=== PATIENT | female | born 1955 | race Caucasian/White ===

== ENCOUNTER 2016-05-19 13:20 | Inpatient (IN) | payer MEDICAID ==
[2016-05-19 13:48] LABS: Hematocrit 36.6 % (37.0-47.0); Hemoglobin 11.9 gm/dL (12.5-16.0); Mean Cell Volume 85.5 fl (78-100); Mean Corpuscular Hemoglobin 27.8 pg (27-31); Mean Corpuscular Hgb Conc 32.5 g/dl (32-36); Mean Platelet Volume 8.1 fl (6.0-9.5); Neutrophil # 4.8 K/mm3 (1.3-6.0); Neutrophil % 72.4 % (42-75.0); Platelet Count 223 K/mm3 (150-450); Red Blood Count 4.28 M/mm3 (4.2-5.4); Red Cell Distribution Width 15.6 % (11.5-14.0); White Blood Count 6.6 K/mm3 (4.0-10.5)
[2016-05-19 14:16] LABS: Troponin I 0.03 ng/ml (0.00-0.10)
[2016-05-19 14:19] LABS: Albumin * 3.3 gm/dl (3.4-5.0); Anion Gap 13.9 mmol/L (6.8-13.8); Bilirubin, Total 0.4 mg/dL (0.0-1.1); Ca. Corrected For Albumin 8.7 mg/dL (8.4-10.2); Calcium * 8.5 mg/dL (7.9-10.9); Carbon Dioxide 28.1 mmol/L (24-32.6); Total Protein 6.9 gm/dL (6.2-8.2)
--- OUTSIDE RECORDS SUMMARY | 2016-05-19 14:27 | XMS REPORT | Continuity of Care Document ---
:1955 Author Organization [facility] ([facility]) Address [place] [address] Phone [phone] Care Team Providers Name Role Phone Provider, No-Primary Care Primary Care Provider Unavailable Source Comments This disclosure is being made pursuant to the Care Everywhere program, applicable federal and state laws, and may not contain all informaitonavailable regarding this patient.[facility] ([facility]) Active Allergies and Adverse Reactions No Known Allergies Current Medications Prescription Sig. Disp. Refills Start Date End Date Status meloxicam 15 mg tablet Take 15 mg by Active mouth 2 times daily. HYDROcodone-acetaminophen Take 1 Tab by Active 5-325 mg per tablet mouth every 4 hours as needed. Active Problems Problem Noted Date Altered mental status 12/24/2013 Social History Tobacco Use Types Packs/Day Years Used Date Current Every Day Smoker Cigarettes 1 Alcohol Use Drinks/Week oz/Week Comments Yes Last Filed Vital Signs Vital Sign Reading Time Taken Blood Pressure 145/82 12/24/2013 8:01 AM CDT Pulse 86 12/24/2013 8:01 AM CDT Temperature 36.2 C (97.2 F) 12/24/2013 8:01 AM CDT Respiratory Rate 16 12/24/2013 8:01 AM CDT Height - - Weight - - Body Mass Index - - Oxygen Saturation 97% 12/24/2013 8:01 AM CDT Plan of Care Health Maintenance Due Date Last Done Comments HCV Screening 1955 Hepatitis B Vaccine (1 of 3 - Primary Series) 1955 Tdap Vaccine 1968 DIABETIC: Cholesterol 10/30/1975 Diabetic: Hdl 10/30/1975 DIABETIC: Hemoglobin A1C 10/30/1975 Diabetic: Ldl 10/30/1975 DIABETIC: Microalbumin 10/30/1975 DIABETIC: Triglycerides 10/30/1975 MMR Vaccine 10/30/1975 Td Vaccine 10/30/1975 Pneumococcal Vaccine (1 of 1 - PPSV23) 1976 Cervical Cancer Screening 10/30/1987 Mammogram 1997 Colonoscopy 2007 DIABETIC: Foot Exam 01/01/2014 DIABETIC: Retinal Eye Exam 01/01/2014 Influenza Vaccine: Seasonal (#1) 10/14/2015 Results from Last 3 Months Not on file
--- NOTE | 2016-05-19 14:40 | ERNOTE ---
Dyspnea - General Presenting Symptoms: shortness of breath, difficulty of breathing Time Seen by Provider: 05/19/16 13:36 Source: patient Exam Limitations: no limitations - Immun/Allergies/Home Medications Immunizations: IMMUNIZATION HX Immunizations Up to Date Yes History of Influenza Vaccine No Hx Pneumococcal Vaccination No Allergies/Adverse Reactions: Allergies No Known Allergies Allergy (Verified 05/19/16 13:28) Home Medications: HOME MEDICATIONS NK [No Home Medication] 05/19/16 [Last Taken Unknown] - History of Present Illness Severity: severe Frequency of episodes: Reports: no prior episodes Review of Systems - Review of Systems Constitutional: Present: See HPI EYE: Present: no symptoms reported ENT: Present: no symptoms reported Respiratory: Present: shortness of breath Cardiology: Present: palpitations Gastrointestinal/Abdominal: Present: no symptoms reported Genitourinary: Present: no symptoms reported Musculoskeletal: Present: no symptoms reported Skin: Present: no symptoms reported Neurological: Present: no symptoms reported Endocrine: Present: no symptoms reported Hematologic/Lymphatic: Present: no symptoms reported Psych: Present: no symptoms reported - Patient's Past Medical History Patient History - Medical: No pertinent hx Patient History - Cardiac/Respiratory: No pertinent hx Patient History - Cancer: No Hx of Cancer Patient History - Surgical Procedures: Back Surgery Patient History - Other: None - Social History Living Situations: home Abuse History: No History of abuse Psych History: No pertinent hx Smoking Status: Current every day smoker Have you smoked in the past 12 months: Yes Alcohol Use: none Drug Use: none - Immunizations Immunizations Up to Date: Yes Hx Pneumococcal Vaccination: No History of Influenza Vaccine: No Physical Exam - Physical Exam General Appearance: Present: wd/wn, alert, severe distress Eye Exam: Normal inspection: bilateral, PERRL: bilateral Ears, Nose, Throat: Present: normal ENT inspection, H, normal pharynx Neck: Present: normal inspection, nontender Respiratory: Present: normal breath sounds, chest nontender, respiratory distress, accessory muscle use, crackles - right base, other - tachypneic Cardiovascular/Chest: Present: no murmur, normal peripheral pulses, tachycardia Gastrointestinal/Abdominal: Present: normal bowel sounds, nontender, nondistended, soft, no organomegaly Rectal Exam: Present: deferred Back Exam: Present: normal inspection, normal range of motion Extremity Exam: Present: normal inspection, non-tender, no edema, normal range of motion Neurological Exam: Present: alert, oriented, normal mood/affect Skin Exam: Present: normal color, warm/dry Lymphatic Exam: Present: no adenopathy ED Progress - Results and Orders Patient's Lab Results:: I have reviewed the patient's lab results. - Vital Signs Patient's Vital Signs:: I have reviewed the patient's vital signs. Vital Signs: Vital Signs 05/19/16 05/19/16 13:24 13:56 Temperature 36.4 C L Pulse Rate 103 H 98 Respiratory 24 H Rate Blood Pressure 146/94 O2 Sat by Pulse 95 Oximetry - EKG EKG read: Interp. by me - X-Ray X-Ray #1 X-Ray: chest Interpretation: Reviewed by me - CT/Ultrasound CT/Ultrasound Narrative: Because Joselyn met the PERC criteria as well as having elevated BNP and d-dimer and a troponin leak a chest CT was done. However it did not reveal any evidence of any pulmonary embolus, it did reveal fairly extensive congestive heart failure and cardiomegaly. - Progress/Reassessment Chief Complaint: Dyspnea Plan - Plan Plan: Patient does not have any significant medical history neither she seen a medical physician in quite some time. Patient presented with uncontrolled hypertension the top blood pressure 160/110 as well as being tachypneic and hypoxic. On CT patient does not have a PE however she does have fairly extensive cardiomegaly and congestive heart failure. Patient need to admitted to a monitored bed, 80 Lasix 4 morphine and 4 Zofran are given here in the emergency department. Departure Clinical Impression: Uncontrolled hypertension CHF (congestive heart failure) Qualifiers: Congestive heart failure type: unspecified congestive heart failure type Congestive heart failure chronicity: acute Qualified Code(s): I50.9 - Heart failure, unspecified - Departure Disposition: [facility] Condition: Fair
[2016-05-19] MEDS ORDERED: MORPHINE SULFATE 4 MG/ML SYRG IV ONE (15:26)
[2016-05-19] MEDS ORDERED: FUROSEMIDE 10 MG/ML VIAL IV ONE (15:26)
[2016-05-19] MEDS ORDERED: ONDANSETRON HCL/PF 2 MG/ML VIAL IV ONE (15:26)
[2016-05-19] MEDS ORDERED: MORPHINE SULFATE 4 MG/ML SYRG ONE (15:34)
[2016-05-19] MEDS ORDERED: ONDANSETRON HCL/PF 2 MG/ML VIAL ONE (15:34)
[2016-05-19] MEDS ORDERED: FUROSEMIDE 10 MG/ML VIAL ONE (15:34)
--- OUTSIDE RECORDS SUMMARY | 2016-05-19 16:27 | XMS REPORT | Continuity of Care Document ---
:1955 Author Organization [facility] ([facility]) Address [place] [address] Phone [phone] Care Team Providers Name Role Phone Provider, No-Primary Care Primary Care Provider Unavailable Source Comments This disclosure is being made pursuant to the Care Everywhere program, applicable federal and state laws, and may not contain all informaitonavailable regarding this patient.[facility] ([facility]) Active Allergies and Adverse Reactions No [...]
[2016-05-19] MEDS ORDERED: FLU VACC QS2016-17 36MOS UP/PF 60 MCG/0.5 ML DISP.SYRIN IM ONE (17:07)
--- NOTE | 2016-05-19 21:46 | HP ---
Chief Complaint - Chief Complaint Date of Service: 05/19/16 Time of Service: 21:36 Chief Complaint: "SOB". Source of HPI- History of Present Illness: Ms. Hickey is a 60-yr-old WF pt with no prior pertinent medical history and has no PCP. Pt is not quite a precise historian. She states that she has felt SOB for the last 2 weeks, but it 'seemed like it was getting worse within the last few days.' She reports that the SOB was more worse with any activity and has been feeling fatigued. She denies the associated symptoms of coughing, chest pain or wheezing. She also denies fevers and chills. She admits to rarely seeking medical care or seeing a doctor. During evaluation at the ED, the hematology and Chemistries labwork were unremarkable. The CT was negative for Pulmonary embolism. The EKG & Troponin also was negative for ACS. However, the CXR showed increased pulmonary congestion, suggestive of CHF & also bilateral pleural effusion was noted. Her BNP was elevated at 5533. She will be admitted inpatient for a minimum of 2 midnights or more due to clinical signs of new onset CHF which has the potential to cause cardiac arrhythmias. She also had bilateral pleural effusion and, both of the stated conditions will require/ respond well to IV diuretics. - Patient's Past Medical History Patient History - Medical: No pertinent hx Patient History - Cardiac/Respiratory: CHF Patient History - Cancer: No Hx of Cancer Patient History - Surgical Procedures: Back Surgery Patient History - Other: None - Family History Father Family History - Medical: Family History - Cardiac/Respiratory: CHF, Hypertension, Hyperlipidemia Family History - Cancer: No pertinent family hx Mother Family History - Medical: , Diabetes Type 2 Family History - Cardiac/Respiratory: Hypertension Family History - Cancer: No pertinent family hx - Social History Living Situations: spouse Abuse History: No History of abuse Psych History: No pertinent hx Smoking Status: Current some day smoker Have you smoked in the past 12 months: Yes Do you dip or chew tobacco: No Alcohol Use: none Drug Use: none - Immunizations Immunizations Up to Date: Yes Hx Pneumococcal Vaccination: No History of Influenza Vaccine: No Review Of Systems (GEN) - Review of Systems Generalized/Overall Review: Present: Weakness. Absent: Chills, Fever, Diaphoresis EENTM: Absent: Eye Pain, Blurred Vision, Nose Congestion, Throat Pain Respiratory: Present: Shortness of Breath. Absent: Cough, Orthopnea, Wheezing Cardiac: Absent: Chest Pain, Palpitations Abdominal: Absent: Nausea, Vomiting, Abdominal Pain, Constipation, Diarrhea Genitourinary: Absent: Burning, Frequency, Hematuria Musculoskeletal: Absent: Joint Pain, Back Pain, Joint Swelling Neurological: Absent: Headache, Anxiety, Depressed Skin: Absent: Dryness, Lesions Endocrine: Absent: Intolerance to Cold, Intolerance to Heat, Increased Thirst Misc: All systems neg except as marked Allergies/Adverse Reactions: Allergies Allergy/AdvReac Type Severity Reaction Status Date / Time No Known Allergies Allergy Verified 05/19/16 17:27 Home Medications: HOME MEDICATIONS NK [No Home Medication] 05/19/16 [Last Taken Unknown] Exam - Exam Vital Signs: Vital Signs - Last Taken Temp 36.4 C L 05/19/16 16:59 Pulse 98 05/19/16 16:59 Resp 16 05/19/16 16:59 BP 132/85 05/19/16 16:59 Pulse Ox 92 05/19/16 16:59 Constitutional: Present: Alert, Oriented x3, No distress ENT Exam: Present: normal ENT inspection, hearing grossly normal, dry mucous membranes. Absent: nasal congestion, nasal drainage Eye Exam: bilateral eye: normal inspection, PERRL Neck: Present: full range of motion, supple, normal inspection Back Exam: Present: normal inspection, no CVA tenderness Respiratory: Present: no accessory muscle use, rales - Bilateral bases., rhonchi Cardiovascular/Chest: Present: regular rate, rhythm, no chest tenderness, no edema, no murmur Abdomen: Present: Normal bowel sounds, soft, nontender /Rectal: Present: Exam deferred Extremity: Present: normal range of motion, non-tender, normal inspection Skin Exam: Present: warm/dry, no cyanosis Lymphatic: Present: no adenopathy Neurologic: Present: no motor/sensory deficits, alert, oriented x 3 Appearance: Present: appropriate appearance, appropriate insight Eye contact: Present: cooperative, good eye contact, normal speech Thoughts: Present: normal thought pattern, no apparent hallucination Diagnostic Studies: Laboratory Results WBC 6.6 K/mm3 (4.0-10.5) 05/19/16 13:40 RBC 4.28 M/mm3 (4.2-5.4) 05/19/16 13:40 Hgb 11.9 gm/dL (12.5-16.0) L 05/19/16 13:40 Hct 36.6 % (37.0-47.0) L 05/19/16 13:40 MCV 85.5 fl (78-100) 05/19/16 13:40 MCH 27.8 pg (27-31) 05/19/16 13:40 MCHC 32.5 g/dl (32-36) 05/19/16 13:40 RDW 15.6 % (11.5-14.0) H 05/19/16 13:40 Plt Count 223 K/mm3 (150-450) 05/19/16 13:40 MPV 8.1 fl (6.0-9.5) 05/19/16 13:40 Immature Gran % (Auto) 0.20 % (0.001-0.429) 05/19/16 13:40 Immature Gran # (Auto) 0.01 K/mm3 (0.000-0.0310) 05/19/16 13:40 Neutrophils % 72.4 % (42-75.0) 05/19/16 13:40 Lymphocytes % 18.8 % (20-51) L 05/19/16 13:40 Monocytes % 6.5 % (0.0-9) 05/19/16 13:40 Eosinophils % 1.8 % (0.0-3.0) 05/19/16 13:40 Basophils % 0.3 % (0.0-1.0) 05/19/16 13:40 Nucleated RBC % 0.0 k/mm3 (0-1) 05/19/16 13:40 Neutrophils # 4.8 K/mm3 (1.3-6.0) 05/19/16 13:40 Lymphocytes # 1.2 k/mm3 (1.5-3.5) L 05/19/16 13:40 Monocytes # 0.4 k/mm3 (0.0-1.0) 05/19/16 13:40 Eosinophils # 0.1 k/mm3 (0.0-0.7) 05/19/16 13:40 Absolute Basophils 0.0 k/mm3 (0.0-0.1) 05/19/16 13:40 D-Dimer 1.96 mg/L (0.19-0.49) H 05/19/16 14:00 pCO2 40.4 mmHg (32.0-45.0) 05/19/16 14:19 pO2 95.0 mmHg (83.0-108.0) 05/19/16 14:19 HCO3 26.3 mmol/L (21.0-28.0) 05/19/16 14:19 Total CO2 27.6 mmol/L (19.0-24.0) H 05/19/16 14:19 Base Excess 1.9 mmol/L (-2.0-3.0) 05/19/16 14:19 ABG pH 7.43 (7.35-7.45) 05/19/16 14:19 ABG O2 Sat (Measured) 97.4 % (94.0-98.0) 05/19/16 14:19 Sodium 142 mmol/L (132-142) 05/19/16 13:40 Plasma Sodium 143 mmol/L (130-142) H 05/19/16 13:40 Potassium 4.0 mmol/L (3.4-4.6) 05/19/16 13:40 Chloride 104 mmol/L (97-106) 05/19/16 13:40 Carbon Dioxide 28.1 mmol/L (24-32.6) 05/19/16 13:40 Anion Gap 13.9 mmol/L (6.8-13.8) H 05/19/16 13:40 BUN 14 mg/dL (3-23) 05/19/16 13:40 Creatinine 0.70 mg/dL (0.4-1.4) 05/19/16 13:40 Est GFR (Non-Af Amer) 91 mL/min (60-130) D 05/19/16 13:40 BUN/Creatinine Ratio 20.0 (9.0-21.6) 05/19/16 13:40 Random Glucose 139 mg/dL (70-110) H 05/19/16 13:40 Calcium 8.5 mg/dL (7.9-10.9) 05/19/16 13:40 Calcium Adj for Albumin 8.7 mg/dL (8.4-10.2) 05/19/16 13:40 Total Bilirubin 0.4 mg/dL (0.0-1.1) 05/19/16 13:40 AST 32 U/L (0-48) 05/19/16 13:40 ALT 58 U/L (19-67) 05/19/16 13:40 Alkaline Phosphatase 79 U/L (50-170) 05/19/16 13:40 Troponin I 0.030 ng/ml (0.00-0.10) 05/19/16 13:40 B-Natriuretic Peptide 5533 pg/mL (5-205) H 05/19/16 13:40 Total Protein 6.9 gm/dL (6.2-8.2) 05/19/16 13:40 Albumin 3.3 gm/dl (3.4-5.0) L 05/19/16 13:40 Assessment/Plan - Assessment/Plan (1) New onset of congestive heart failure Assessment: Ms Hickey is a 60-yr-old who presented with 2 weeks of SOB and she reported that it was progressively becoming worse. Heart failure is suspected due to Dyspnea, fatigue, the CXR findings showing increased pulmonary congestion/ increased interstitial markings & Elevated BNP. She will need an Echocardiogram to evaluate left and Right ventricular systolic function & valve function. Will administer IV diuretics, O2 supplementation, Provide CHF teaching, Accurate I/O, Na restricted diet and daily Wts, Give K replacement, VTE prophylaxis. Will add TSH, Fasting Lipid Profile, and BMP in am. Problem: Acute (2) Bilateral pleural effusion Assessment: The CXR showed bilateral pleural effusion and was most likely brought forth by Heart Failure. However, the CT of the chest showed an incidental findings of Andrea. upper pulmonary lung nodules with the largest nodule measuring about 6.9 mm. Therefore, this make malignancy a questionable cause of Pleural effusion. Consider thoracentesis with ultrasound guidance and pleural fluid testing to determine etiology. Problem: Acute (3) HTN (hypertension) Assessment: Will monitor for sustained high BP. (SBP> 140 DBP> 90.) Problem: Acute Qualifiers: Hypertension type: essential hypertension Qualified Code(s): I10 - Essential (primary) hypertension
[2016-05-19] MEDS: IBUPROFEN 400 MG TABLET PO PRN (22:24)
[2016-05-19] MEDS: POTASSIUM CHLORIDE 20 MEQ TABLET.SA PO SCH (22:24)
[2016-05-20] MEDS: HEPARIN SODIUM,PORCINE 5,000 UNITS/ML VIAL SC SCH ×2 (02:21→11:42)
[2016-05-20 06:45] LABS: Anion Gap 11.8 mmol/L (6.8-13.8); Calcium * 8.7 mg/dL (7.9-10.9); Carbon Dioxide 32.7 mmol/L (24-32.6); Chol/HDL Risk Ratio 2.9 mg/dL (3.3-4.4); Estimated Creat Clear 47.4; Potassium 4.5 mmol/L (3.4-4.6); TSH * 2.808 uIU/mL (0.358-3.74)
[2016-05-20] MEDS: POTASSIUM CHLORIDE 20 MEQ TABLET.SA PO SCH (08:10)
[2016-05-20] MEDS: FUROSEMIDE 10 MG/ML VIAL IV SCH (08:37)
[2016-05-20] MEDS: IBUPROFEN 400 MG TABLET PO PRN (08:39)
[2016-05-20] MEDS ORDERED: FLU VACC QS2016-17 36MOS UP/PF 60 MCG/0.5 ML DISP.SYRIN IM ONE (09:00)
[2016-05-20] MEDS ORDERED: FUROSEMIDE 10 MG/ML VIAL IV SCH (09:00)
--- NOTE | 2016-05-20 12:55 | PN ---
Subjective - Date and Time Seen Date: 05/20/16 Time: 10:30 Subjective Narrative: Susie is a 60 year old female with no significant PMH and no PCP who presented to the ER with c/o dyspnea x2 weeks. ER eval showed chest xray c/w with increased pulmonary congestion suggestive of CHF and bilateral pleural effusions , CT of the chest that was neg for a pulmonary embolism but also showed bilat plueral effusions, small, and bilat upper pulmonary lung nodules (largest at 6.9 mm). BNP in ER was 5533 and patient was given 80 mg of IV lasix. troponin in ER was 0.030 but EKG was negative for ACS. Patient was found to be 87% on RA and was placed on 1.5 L via nc - subsequently saturated 96%. Chest xray also showed newly enlarged cardiomegaly, as compared to a chest xray done in 2013. Upon admission, orders were started for lasix 60 mg iv daily to be started in the am and to have an echocardiogarm done in the am. Patient is also currently self pay but states that she is disabled and has applied to medicaid. The morning after admission, pt states that her breathing is much improved but still with some dyspnea - this am pt is currently on RA. repeat troponin decreased from initial. repeat ekg this am showed SR with SA with ST- T wave changes but no significant change from prior ekg. no arrhythmias have been observed overnight on telemetry. Objective - Review of Systems Generalized/Overall Review: Reports: No Symptoms Reported EENTM: Reports: No Symptoms Reported Respiratory: Reports: Shortness of Breath Cardiac: Reports: No Symptoms Reported Abdominal: Reports: No Symptoms Reported Genitourinary Symptoms: Reports: No Symptoms Reported Musculoskeletal Complaints: Reports: No Symptoms Reported Neurological: Reports: No Symptoms Reported Skin: Reports: No Symptoms Reported Endocrine: Reports: No Symptoms Reported Misc: All systems neg except as marked - Vitals Vitals: Last Vital Signs Temp 37.2 C 05/20/16 09:00 Pulse 93 05/20/16 10:00 Resp 18 05/20/16 09:00 BP 118/73 05/20/16 09:00 Pulse Ox 87 L 05/20/16 09:19 Selected Entries 05/20/16 05/20/16 09:00 09:19 Temperature 37.2 C Temperature Oral Source Pulse Rate 97 Respiratory 18 Rate Blood Pressure 118/73 Blood Pressure 88 Mean O2 Sat by Pulse 96 87 L Oximetry Oxygen Delivery Nasal Cannula Nasal Cannula Method Oxygen Flow 1.5 1 Rate - Abnormal Lab Findings Abnormal Lab Findings: Abnormal Lab Results 05/20/16 Range/Units 05:37 Carbon Dioxide 32.7 H (24-32.6) mmol/L Est GFR (Non-Af Amer) 56 L D (60-130) mL/min Cholesterol/HDL Ratio 2.9 L (3.3-4.4) mg/dL Laboratory Tests 05/19/16 05/19/16 05/19/16 13:40 13:40 13:40 WBC 6.6 RBC 4.28 Hgb 11.9 L Hct 36.6 L Plt Count 223 D-Dimer pCO2 pO2 Total CO2 ABG pH ABG O2 Sat (Measured) Sodium Potassium Chloride Carbon Dioxide Anion Gap BUN Creatinine 0.70 Est GFR (Non-Af Amer) BUN/Creatinine Ratio Random Glucose Calcium Magnesium Total Bilirubin 0.4 AST 32 ALT 58 Alkaline Phosphatase 79 Troponin I 0.030 B-Natriuretic Peptide 5533 H Total Protein 6.9 Albumin 3.3 L Triglycerides Cholesterol LDL Cholesterol VLDL Cholesterol HDL Cholesterol Cholesterol/HDL Ratio TSH 05/19/16 05/19/16 05/20/16 14:00 14:19 05:37 WBC RBC Hgb Hct Plt Count D-Dimer 1.96 H pCO2 40.4 pO2 95.0 Total CO2 27.6 H ABG pH 7.43 ABG O2 Sat (Measured) 97.4 Sodium 139 Potassium 4.5 Chloride 99 Carbon Dioxide 32.7 H Anion Gap 11.8 BUN 15 Creatinine 1.07 Est GFR (Non-Af Amer) 56 L D BUN/Creatinine Ratio 14.0 Random Glucose 103 Calcium 8.7 Magnesium Total Bilirubin AST ALT Alkaline Phosphatase Troponin I B-Natriuretic Peptide Total Protein Albumin Triglycerides 73 Cholesterol 160 LDL Cholesterol 91 VLDL Cholesterol 15 HDL Cholesterol 54 Cholesterol/HDL Ratio 2.9 L TSH 2.808 05/20/16 05/20/16 05:37 05:37 WBC RBC Hgb Hct Plt Count D-Dimer pCO2 pO2 Total CO2 ABG pH ABG O2 Sat (Measured) Sodium Potassium Chloride Carbon Dioxide Anion Gap BUN Creatinine Est GFR (Non-Af Amer) BUN/Creatinine Ratio Random Glucose Calcium Magnesium 2.2 Total Bilirubin AST ALT Alkaline Phosphatase Troponin I 0.024 B-Natriuretic Peptide Total Protein Albumin Triglycerides Cholesterol LDL Cholesterol VLDL Cholesterol HDL Cholesterol Cholesterol/HDL Ratio TSH - EKG/Xray Findings EKG: other - SR with SA, ST-T wave changes, no change from prior EKG. EKG read: Interp. by me - Exam Constitutional: Present: Alert, Oriented x3, Cooperative, No distress ENT Exam: Present: hearing grossly normal Neck: Present: supple Breasts: Present: Exam deferred Respiratory: Present: chest non-tender, no respiratory distress, no accessory muscle use, rales - bilateral bases, rhonchi, No wheezing Cardiovascular/Chest: Present: normal peripheral pulses, regular rate, rhythm, no chest tenderness, no edema, no murmur, JVD Abdomen: Present: Normal bowel sounds, soft, nontender, nondistended /Rectal: Present: Exam deferred Extremity: Present: non-tender, normal inspection, no pedal edema, no calf tenderness Skin Exam: Present: normal color, warm/dry, no cyanosis Neurologic: Present: alert, oriented x 3 Assessment/Plan - Problems/Diagnosis (1) Hypoxia Problem: Acute Narrative: wean oxygen as able, with the aid of diuresis from iv lasix. pt was on room air prior to admission. (2) Dyspnea Problem: Acute Qualifiers: Dyspnea type: shortness of breath Qualified Code(s): R06.02 - Shortness of breath Narrative: likely from CHF exac. however, ekg does have some irregularities, although not ACS, pt may benefit from a stress test outpatient - especially in light of her smoking history. troponins are trending downwards and ekgs show no acute changes - thus can rule out acute PR. (3) Bilateral pleural effusion Problem: Acute Narrative: continue IV lasix. unlikely to be large enough to qualify for thoracentesis. monitor labs in the am. (4) HTN (hypertension) Problem: Acute Qualifiers: Hypertension type: essential hypertension Qualified Code(s): I10 - Essential (primary) hypertension Narrative: monitor blood pressures (SBP>140 and DBP >90) to see if pt would benefit from antihypertensive. (5) New onset of congestive heart failure Problem: Acute Narrative: cardiomegaly is new from a chest xray done in 2013. echocardiogram is currently pending. patient has currently responded well to iv lasix. continue 60 mg iv lasix daily. will need echo in order to classify what type of CHF patient has. pt will need a significant amount of CHF teaching while she is admitted. continue daily weights/accurate I/Os, sodium restricted diet. check labs in the am. supplement oxygen as needed. (6) Multiple pulmonary nodules Problem: Acute Narrative: incidential finding on ct of the chest. pleural effusion is likely too small for thoracentesis. given patient's significant chronic smoking history, patient may benefit from outpatient ct of the chest to monitor the pulmonary nodules over the senior living.
[2016-05-20] MEDS ORDERED: LISINOPRIL 10 MG TABLET ONE (20:41)
[2016-05-20] MEDS: CARVEDILOL 3.125 MG TABLET PO SCH (20:56)
[2016-05-20] MEDS: LISINOPRIL 2.5 MG TABLET PO SCH (20:57)
[2016-05-21] MEDS: HEPARIN SODIUM,PORCINE 5,000 UNITS/ML VIAL SC SCH ×2 (00:05→12:49)
[2016-05-21 06:22] LABS: Hematocrit 41.3 % (37.0-47.0); Hemoglobin 13.3 gm/dL (12.5-16.0); Mean Cell Volume 86.6 fl (78-100); Mean Corpuscular Hemoglobin 27.9 pg (27-31); Mean Corpuscular Hgb Conc 32.2 g/dl (32-36); Mean Platelet Volume 8.6 fl (6.0-9.5); Neutrophil # 3.2 K/mm3 (1.3-6.0); Neutrophil % 62.1 % (42-75.0); Platelet Count 246 K/mm3 (150-450); Red Blood Count 4.77 M/mm3 (4.2-5.4); Red Cell Distribution Width 15.1 % (11.5-14.0); White Blood Count 5.1 K/mm3 (4.0-10.5)
[2016-05-21 07:11] LABS: Anion Gap 11.7 mmol/L (6.8-13.8); BUN/Creatinine Ratio 19.2 (9.0-21.6); Calcium * 8.6 mg/dL (7.9-10.9); Carbon Dioxide 30.9 mmol/L (24-32.6); Estimated Creat Clear 69.5; Potassium 4.6 mmol/L (3.4-4.6)
[2016-05-21] MEDS: SPIRONOLACTONE 25 MG TABLET PO SCH (08:33)
[2016-05-21] MEDS: CARVEDILOL 3.125 MG TABLET PO SCH ×2 (08:33→20:34)
[2016-05-21] MEDS: LISINOPRIL 2.5 MG TABLET PO SCH ×2 (08:38→20:35)
[2016-05-21] MEDS: FUROSEMIDE 10 MG/ML VIAL IV SCH (08:42)
--- NOTE | 2016-05-21 09:39 | PN ---
Subjective - Date and Time Seen Date: 05/21/16 Time: 09:37 Subjective Narrative: Patient is doing better. Denies SOB, still with mild orthopnea. Objective - Review of Systems Generalized/Overall Review: Denies: Chills, Fever EENTM: Reports: No Symptoms Reported Respiratory: Reports: Shortness of Breath, Orthopnea Cardiac: Reports: Edema. Denies: Chest Pain, Palpitations Abdominal: Denies: Nausea, Vomiting Genitourinary Symptoms: Denies: Urgency, Frequency Musculoskeletal Complaints: Denies: Joint Pain - Vitals Vitals: Last Vital Signs Temp 37.0 C 05/21/16 07:28 Pulse 97 05/21/16 08:42 Resp 18 05/21/16 07:28 BP 141/84 05/21/16 08:42 Pulse Ox 98 05/21/16 07:28 - Abnormal Lab Findings Abnormal Lab Findings: Abnormal Lab Results 05/21/16 05/21/16 Range/Units 05:16 05:16 RDW 15.1 H (11.5-14.0) % Eosinophils % 6.1 H (0.0-3.0) % Lymphocytes # 1.1 L (1.5-3.5) k/mm3 B-Natriuretic Peptide 1701 H (5-205) pg/mL - Exam Constitutional: Present: Alert, Oriented x3, Cooperative ENT Exam: Present: hearing grossly normal Neck: Present: supple Breasts: Present: Exam deferred Respiratory: Present: decreased breath sounds, No rales, No wheezing Cardiovascular/Chest: Present: regular rate, rhythm, no JVD, no murmur Abdomen: Present: Normal bowel sounds, soft, nontender, nondistended Extremity: Present: no calf tenderness, pedal edema Assessment/Plan - Problems/Diagnosis (1) CHF (congestive heart failure) Problem: Acute Qualifiers: Congestive heart failure type: unspecified congestive heart failure type Congestive heart failure chronicity: acute Qualified Code(s): I50.9 - Heart failure, unspecified Narrative: Echo showed EF of 25-30 %. Had flu-like s/sx 1-1 and 1/2 weeks before becoming SOB/orhtopneic. Viral CMP? Do NSAIDS +/- colchicine ? ESR/CRP WNL though. She denies alcohol or drug abuse. Will get cardiology consult . will need cardiac cath to rule out ischemic CMP. will defer scheduling a stress test. . Started on Coreg, JOEL I, spironolocatone and continued lasix. consider anticoagulation. (2) Dyspnea Problem: Acute Qualifiers: Dyspnea type: dyspnea on exertion Qualified Code(s): R06.09 - Other forms of dyspnea Narrative: improved siginificasntly (3) Multiple pulmonary nodules Problem: Acute (4) HTN (hypertension) Problem: Chronic Qualifiers: Hypertension type: essential hypertension Qualified Code(s): I10 - Essential (primary) hypertension
--- NOTE | 2016-05-21 14:09 | ECHO ---
This report is available in the EMR
[2016-05-21] MEDS: RIVAROXABAN 20 MG TABLET PO SCH (18:16)
--- NOTE | 2016-05-22 07:14 | DS ---
(1) CHF (congestive heart failure) Diagnosis(s): will refer patient to cardiology. Problem: Acute Qualifiers: Congestive heart failure type: combined Congestive heart failure chronicity : acute Qualified Code(s): I50.41 - Acute combined systolic (congestive) and diastolic (congestive) heart failure (2) Dyspnea Diagnosis(s): improved significanlty Problem: Acute Qualifiers: Dyspnea type: dyspnea on exertion Qualified Code(s): R06.09 - Other forms of dyspnea (3) Multiple pulmonary nodules Diagnosis(s): will do follow up CTS. consider pulmonology consult on outpatient basis. Problem: Acute (4) HTN (hypertension) Problem: Chronic Qualifiers: Hypertension type: essential hypertension Qualified Code(s): I10 - Essential (primary) hypertension Description of Stay: Susie Clay, is a 60-yr-old [place] pt with no prior pertinent medical history and has no PCP. Pt is not quite a precise historian. She states that she has felt SOB for the last 2 weeks prior to admission, but it 'seemed like it was getting worse within the last few days.' She reported that the SOB was more worse with any activity and has been feeling fatigued. She denied the associated symptoms of coughing, chest pain or wheezing. She also denied fevers and chills. She admitted to rarely seeking medical care or seeing a doctor. During evaluation at the ED, the hematology and Chemistries labwork were unremarkable. The CT was negative for Pulmonary embolism. The EKG & Troponin also was negative for ACS. However, the CXR showed increased pulmonary congestion, suggestive of CHF & also bilateral pleural effusion was noted. Her BNP was elevated at 5533. She was admitted for new onset CHF on 05/19/2016. She was startd on IV diuresis and AMI was ruled out. Her Echo showed an EF of 25-30%. She has had mild to moderate MR, mild TR, diastolic dysfunction. She was started on Coreg, JOEL I, Spironolactone, and will starte her on anticioagulatiion. Will refer her to cardiology as outpatient. Procedures Performed: none Discharge Disposition: Home self care Disposition: Home self-care Condition: Fair Discharge Activity: Activity as tolerated Discharge Diet: Low salt, Low fat/chol Problem Oriented Discharge Instructions to Patient/Family: Hypertension, Easy- to-Read, Heart Failure, [id number] Additional Patient Instructions (free text): Follow up with me one time in 1 week on May at 2:00 Pm and she needs to seek a PCP. Please come in the office half hour early for paper works. Prescriptions (Any new or edited meds): Carvedilol [Coreg] 3.125 mg PO BID #60 tablet Furosemide [Lasix] 40 mg PO DAILY #30 tablet Lisinopril [Zestril] 2.5 mg PO BID #30 tablet Rivaroxaban [Xarelto] 20 mg PO DAILY #30 tablet Spironolactone [Aldactone] 25 mg PO DAILY #30 tablet Complete Home Medications List: Complete Home Medication List: Carvedilol [Coreg] 3.125 mg PO BID #60 tablet 05/22/16 Furosemide [Lasix] 40 mg PO DAILY #30 tablet 05/22/16 Lisinopril [Zestril] 2.5 mg PO BID #30 tablet 05/22/16 Rivaroxaban [Xarelto] 20 mg PO DAILY #30 tablet 05/22/16 Spironolactone [Aldactone] 25 mg PO DAILY #30 tablet 05/22/16 Amb Orders for Discharge: Basic Metabolic Panel Time Frame: 05/25/16, Location: Determined By Patient
[2016-05-22 07:15] VITALS: BP 130/86
[2016-05-22] MEDS: LISINOPRIL 2.5 MG TABLET PO SCH (08:37)
[2016-05-22] MEDS: SPIRONOLACTONE 25 MG TABLET PO SCH (08:37)
[2016-05-22] MEDS: RIVAROXABAN 20 MG TABLET PO SCH (08:37)
[2016-05-22] MEDS: CARVEDILOL 3.125 MG TABLET PO SCH (08:37)
[2016-05-22] MEDS: FUROSEMIDE 10 MG/ML VIAL IV SCH (08:37)
== END 2016-05-22 09:45 | disposition home or self-care (01) | DRG 293 ==
LOC: ER 13:20 → OBSVTOIN 16:22 → MS 16:22
PROVIDERS: ADMIT Internal Medicine; ATTEND Internal Medicine
PROC: 4A033R1 Measurement of Arterial Saturation, Peripheral, Percutaneous Approach (ICD-10-PCS; 2016-05-19)
PROC: B246ZZZ Ultrasonography of Right and Left Heart (ICD-10-PCS; principal; 2016-05-20)
DX: I50.41 Acute combined systolic (congestive) and diastolic (congestive) heart failure (principal); I10 Essential (primary) hypertension; R91.8 Other nonspecific abnormal finding of lung field; R06.09 Other forms of dyspnea; Z23 Encounter for immunization
CPT/HCPCS: 36415; 36600; 71020; 71275; 80048; 80053; 80061; 82803; 83735; 83880; 84443; 84484; 85025; 85379; 85652; 86140; 90686; 93005; 93306; 96374; 96375; 99283; G0008

== ENCOUNTER 2016-06-29 15:41 | Emergency (ER) | payer MEDICAID ==
--- OUTSIDE RECORDS SUMMARY | 2016-06-29 16:28 | XMS REPORT | Continuity of Care Document ---
:1955 Author Organization [facility] ([facility]) Address [place] [address] Phone [phone] Care Team Providers Name Role Phone Provider, No-Primary Care Primary Care Provider Unavailable Source Comments This disclosure is being made pursuant to the Care Everywhere program, applicable federal and state laws, and may not contain all informaitonavailable regarding this patient.[facility] ([facility]) Active Allergies and Adverse Reactions No [...]
--- NOTE | 2016-06-29 16:38 | ERNOTE ---
Dyspnea - General Presenting Symptoms: shortness of breath Time Seen by Provider: 06/29/16 16:22 Source: patient Exam Limitations: no limitations - Immun/Allergies/Home Medications Immunizations: IMMUNIZATION HX Immunizations Up to Date Yes History of Influenza Vaccine No Hx Pneumococcal Vaccination No Allergies/Adverse Reactions: Allergies No Known Allergies Allergy (Verified 06/29/16 15:56) Home Medications: HOME MEDICATIONS Carvedilol [Coreg] 3.125 mg PO BID #60 tablet 06/29/16 [Last Taken Unknown] Furosemide [Lasix] 40 mg PO DAILY #30 tablet 06/29/16 [Last Taken Unknown] Lisinopril [Zestril] 2.5 mg PO BID #30 tablet 06/29/16 [Last Taken Unknown] Rivaroxaban [Xarelto] 20 mg PO DAILY #30 tablet 06/29/16 [Last Taken Unknown] Spironolactone [Aldactone] 25 mg PO DAILY #30 tablet 06/29/16 [Last Taken Unknown] - History of Present Illness Narrative: PAtient was admitted on May 19 for new onset CHF, started on medications and went home feeling better. She had a follow up appointment but did not go as she did not have her insurance worked out at that time. About three days ago she ran out of medication and has felt her dyspnea increasing again slowly, worse with exertion. She does not feel sick otherwise and essentially would like her medications refilled Initiating event: Reports: out of meds Review of Systems - Review of Systems Constitutional: Present: recent illness. Absent: fever, chills EYE: Absent: blurred vision ENT: Absent: nose congestion, nasal drainage, sore throat Respiratory: Present: See HPI, shortness of breath. Absent: cough Cardiology: Absent: chest pain, palpitations Gastrointestinal/Abdominal: Absent: nausea, vomiting, abdominal pain Genitourinary: Present: no symptoms reported Skin: Absent: rash Neurological: Absent: headache, weakness, numbness - Patient's Past Medical History Patient History - Medical: No pertinent hx Patient History - Cardiac/Respiratory: CHF, Hypertension Patient History - Cancer: No Hx of Cancer Patient History - Surgical Procedures: Back Surgery Patient History - Other: None - Family History Father Family History - Medical: Family History - Cardiac/Respiratory: CHF, Hypertension, Hyperlipidemia Family History - Cancer: No pertinent family hx Mother Family History - Medical: , Diabetes Type 2 Family History - Cardiac/Respiratory: Hypertension Family History - Cancer: No pertinent family hx - Social History Living Situations: home Abuse History: No History of abuse Psych History: No pertinent hx Smoking Status: Current every day smoker Cigarettes Packs Per Day: 0.2 Alcohol Use: none Drug Use: none - Immunizations Immunizations Up to Date: Yes Hx Pneumococcal Vaccination: No History of Influenza Vaccine: No Physical Exam - Physical Exam General Appearance: Present: wd/wn, alert, no apparent distress Ears, Nose, Throat: Present: normal pharynx Respiratory: Present: no respiratory distress, no accessory muscle use, lungs clear, decreased breath sounds Cardiovascular/Chest: Present: no murmur, tachycardia Gastrointestinal/Abdominal: Present: nontender, nondistended, soft Extremity Exam: Present: no edema Neurological Exam: Present: alert, oriented, normal mood/affect Skin Exam: Present: normal color, warm/dry ED Progress - Results and Orders Patient's Lab Results:: I have reviewed the patient's lab results. - Vital Signs Patient's Vital Signs:: I have reviewed the patient's vital signs. Vital Signs: Vital Signs 06/29/16 15:49 Temperature 36.4 C L Pulse Rate 109 H Respiratory 14 Rate Blood Pressure 124/70 O2 Sat by Pulse 96 Oximetry - Progress/Reassessment Chief Complaint: Dyspnea Progress Note-Subjective: 06/29/16 17:09 discussed results with patient and plan for follow up as patient has [place] medicaid she would still end up with a bill if seen in clinic here Departure Clinical Impression: CHF (congestive heart failure) Qualifiers: Congestive heart failure type: unspecified congestive heart failure type Congestive heart failure chronicity: unspecified congestive heart failure chronicity Qualified Code(s): I50.9 - Heart failure, unspecified - Departure Disposition: Home self-care Condition: Good Instructions: Heart Failure, [id number] Additional Instructions: follow up at the [facility] in [place] on at 2:30 pm to be seen by Tana Arora Prescriptions: Carvedilol [Coreg] 3.125 mg PO BID #60 tablet Furosemide [Lasix] 40 mg PO DAILY #30 tablet Lisinopril [Zestril] 2.5 mg PO BID #30 tablet Rivaroxaban [Xarelto] 20 mg PO DAILY #30 tablet Spironolactone [Aldactone] 25 mg PO DAILY #30 tablet
[2016-06-29 16:44] LABS: Hematocrit 46.3 % (37.0-47.0); Hemoglobin 15.4 gm/dL (12.5-16.0); Mean Corpuscular Hemoglobin 27.6 pg (27-31); Mean Corpuscular Hgb Conc 33.3 g/dl (32-36); Mean Platelet Volume 8.4 fl (6.0-9.5); Platelet Count 327 K/mm3 (150-450); Red Blood Count 5.58 M/mm3 (4.2-5.4); White Blood Count 6.4 K/mm3 (4.0-10.5)
[2016-06-29 16:49] LABS: Total Cells Counted 100
[2016-06-29 17:00] LABS: Albumin * 3.3 gm/dl (3.4-5.0); Anion Gap 8.8 mmol/L (6.8-13.8); Bilirubin, Total 0.1 mg/dL (0.0-1.1); Ca. Corrected For Albumin 9.1 mg/dL (8.4-10.2); Calcium * 8.9 mg/dL (7.9-10.9); Carbon Dioxide 33.5 mmol/L (24-32.6); Potassium 4.3 mmol/L (3.4-4.6); Total Protein 7.6 gm/dL (6.2-8.2)
[2016-06-29 17:13] LABS: Band 1 % (0-2.0); Basophil 1 % (0-1); Eosinophil 5 % (0-3); Lymphocyte 39 % (20-51); Monocyte 8 % (0-9); Neutrophil 46 % (42-75); Neutrophil # 2.9 K/mm3 (1.3-6.0)
[2016-06-29 17:14] LABS: Platelet Estimate Normal (NORMAL); Polychromasia 1+; RBC Morphology Normal (NORMAL)
[2016-06-29 17:15] LABS: Smudge Cells 4 /100 WBC (0-0)
[2016-06-29 17:31] VITALS: BP 126/84
== END 2016-06-29 17:20 | disposition home or self-care (01) ==
LOC: ER 15:41
DX: I50.9 Heart failure, unspecified (principal); Z72.0 Tobacco use